=== PATIENT | female | born 1960 | race Caucasian/White ===

== ENCOUNTER → 2017-02-23 | Outpatient (CLI) | payer BC ==
--- NOTE | 2017-02-23 14:06 | US ---
EXAM DATE: 02/23/17 PATIENT'S AGE: 56 Patient: MARIA DE JESUS ALVARENGA Facility: [place], [place] Site . Site : [id number] Study: US Abdomen [id number] 9:32:40 AM Ordering Physician: Carrie House Final Report: CLINICAL HISTORY: Elevated LFTs. FINDINGS: The patient`s liver is of normal size. Mild increased echogenicity of the liver here Is no evidence of ascites. The gallbladder is of normal size. Multiple stones within the gallbladder. The gallbladder wall measures 3 mm in thickness. The common bile duct is of normal size and measures 2 mm in diameter at the level of the vince hepatis. Negative sonographic Lambert`s sign. There is no evidence of a stone or hydronephrosis within the right kidney. The right kidney measures 10.5 cm in length. IMPRESSION: Cholelithiasis without sonographic findings for acute cholecystitis. Mild fatty liver. Dictated by Tresa Kennedy MD @ Feb 23 2017 1:08PM (Electronic Signature) Report Signed by Proxy and Original Signed Document filed in the Medical Record. [facility]
== END ==
LOC: MW.US 08:53
PROVIDERS: ATTEND Student in an Organized Health Care Education/Training Program
DX: R10.11 Right upper quadrant pain (principal); K80.20 Calculus of gallbladder without cholecystitis without obstruction; K76.0 Fatty (change of) liver, not elsewhere classified
CPT/HCPCS: 76775; 76775-26